=== PATIENT | female | born 1985 | race Two or more races ===

== ENCOUNTER 2016-09-19 15:27 | Emergency (ER) | payer SELFPAY ==
[~2016-09-19] VITALS: Ht 154.9 cm; Wt 63.5 kg
[2016-09-19 15:46] VITALS: BP 118/80
== END 2016-09-19 18:23 | disposition home or self-care (01) ==
LOC: ER 15:48
DX: S16.1XXA Strain of muscle, fascia and tendon at neck level, initial encounter (principal); V43.52XA Car driver injured in collision with other type car in traffic accident, initial encounter; Y93.89 Activity, other specified; Y99.8 Other external cause status; Y92.488 Other paved roadways as the place of occurrence of the external cause
CPT/HCPCS: 72040

== ENCOUNTER 2018-11-12 17:45 | Emergency (ER) | payer SELFPAY | END 2018-11-12 18:12 | disposition left against medical advice (07) | LOC: ER 17:47 | DX: R21 Rash and other nonspecific skin eruption (principal); Z53.21 Procedure and treatment not carried out due to patient leaving prior to being seen by health care provider ==